=== PATIENT | male | born 1955 | race Caucasian/White ===

== ENCOUNTER 2020-09-05 19:15 | Observation (INO) | payer OTHER ==
[~2020-09-05] VITALS: Ht 167.6 cm; Wt 107.0 kg
[2020-09-05 19:18] VITALS: BP 158/75
[2020-09-05 19:39] LABS: ABSOLUTE BASOPHILS 0.1 thou/uL (0.0-0.2); ABSOLUTE EOSINOPHILS 0.1 thou/uL (0.0-0.7); ABSOLUTE MONOCYTES 0.9 thou/uL (0.0-1.2); ABSOLUTE NEUTROPHILS 3.7 thou/uL (1.6-8.1); BASOPHILS 0.8 %; EOSINOPHILS 1.7 %; HEMATOCRIT 47.4 % (42.0-52.0); HEMOGLOBIN 16.1 gm/dL (14.0-18.0); LYMPHOCYTES 45.5 %; MCH 30.2 pg (26.0-34.0); MCV 88.8 fL (80.0-100.0); MONOCYTES 10.3 %; MPV 7.6 fl. (7.2-11.1); NUCLEATED RBCS 0 /100WBC; PLATELET COUNT* 220 thou/uL (150-400); POLYS 41.7 %; RBC 5.34 mil/uL (4.50-6.00); RDW-CV 14.3 % (10.5-14.5); WBC 8.9 thou/uL (4.0-11.0)
[2020-09-05 19:47] LABS: CALCIUM 8.4 mg/dL (8.5-10.1); CREATININE 1.1 mg/dL (0.6-1.3); POTASSIUM 3.8 mmol/L (3.5-5.1)
[2020-09-05 19:49] LABS: PROTIME 10.6 Seconds (9.20-11.50)
[2020-09-05 19:57] LABS: ALBUMIN 3.9 g/dL (3.4-5.0); MAGNESIUM 2.1 mg/dL (1.8-2.4); TOTAL BILIRUBIN 0.8 mg/dL (<0.1-1.0); TOTAL PROTEIN 8.3 g/dL (6.4-8.2)
[2020-09-05 20:20] LABS: SGOT 44.4 U/L (15-37)
[2020-09-05 21:16] LABS: URINE BILIRUBIN NEGATIVE (Negative); URINE BLOOD NEGATIVE (Negative); URINE CLARITY CLEAR; URINE COLOR YELLOW; URINE GLUCOSE-RANDOM 3+ (Negative); URINE KETONES NEGATIVE (Negative); URINE LEUKOCYTES-REFLEX NEGATIVE (Negative); URINE NITRITE-REFLEX NEGATIVE (Negative); URINE PROTEIN NEGATIVE (Negative); URINE UROBILINOGEN 0.2 E.U./dl (0.2-1.0)
[2020-09-05 23:26] VITALS: BP 138/78
[2020-09-06] VITALS (7 sets, daily range): BP systolic 114–149; BP diastolic 62–83
--- NOTE | 2020-09-06 09:54 | EKG ---
[place] [address] ELECTROCARDIOGRAM REPORT Name: SHANDA CONTRERAS Room: [address]R.#: [id number] Admission: 09/05/20 Attend Phys: Kamala Gallego MD Discharge: Date of : 59 Date of Service: 09/05/201920 Report #: [id number] THIS REPORT FOR: //name// [facility] ED Test Date: 2020-09-05 Test Time: 19:21:01 Pat Name: SHANDA CONTRERAS Department: Room: [facility] Gender: M Interline Clerk: ID : [id number] Requested By: Jina Beatty Order Number: [id number] MD: Alen Dietrich Measurements Intervals [place] Rate: 94 P: 76 RI: 171 QRS: 65 QRSD: 110 T: 35 QT: 352 QTc: 441 Interpretive Statements Sinus tachycardia Multiform ventricular premature complexes RSR' in V1 or V2, right VCD or RVH No previous ECG available for comparison Electronically Signed On 09-06-2020 9:54:42 CDT by Alen Dietrich [email or web address] <ELECTRONICALLY SIGNED> By: Alen Dietrich MD, FAC 09/06/20 0954 20 20 Alen Dietrich MD, [facility] /EPI
--- NOTE | 2020-09-06 12:20 | NUR ---
Pt is A&O. Resides at home alone. Independent. No DME. No hx of HH or SNF. Pt to have stress test today. Anticipate dc home later today if negative. [facility]ist screened Pt for Medicaid, Pt is now Medicaid pending.
--- NOTE | 2020-09-06 14:46 | EXE ---
[place] [address] STRESS ECHOCARDIOGRAM Name: SHANDA CONTRERAS Jasson Room: [address] Ene#: [id number] Admission: 09/05/20 Attend Phys: Kamala Gallego MD Discharge: Date of : 59 Date of Service: 09/06/20 1446 Report #: [id number] THIS REPORT FOR: cc: Rosales Guajardo Vincent R. DO Blick, David R. MD [facility] ~ APPROVED REPORT Study performed: 09/06/2020 11:01:10 Exam: Stress Echocardiogram Indication: Chest pain Patient Location: In-Patient Stress Nurse: Daniela Null RN Room #: [id number] Supervising Physician: Alen Dietrich MD Status: routine Ht: 5 ft 6 in HR: 72 bpm BP: 149/77 mmHg Rhythm: NSR Medical History Allergies: No known drug allergies Cardiac Risk Factors: Hyperlipidemia, DM, FHX of CAD Procedure The patient underwent an Exercise Stress Test using the Trevor Protocol. Blood pressure, heart rate, and EKG were monitored. An Echocardiogram was performed by plant technician in four stages in quad fashion. At peak stress, four selected images were obtained and placed side by side with resting images for comparison. Stress Test Details Stress Test: Exercise stress testing was performed using a Trevor protocol. HR Resting HR: 72 bpm Max Heart Rate (APMHR): 157 bpm Max HR Achieved: 148 bpm Target HR (85% APMHR): 133 bpm % of APMHR: 94 Recovery HR: 93 bpm HR response to stress: Normal [place] [address] STRESS ECHOCARDIOGRAM Name: SHANDA CONTRERAS [address] [id number] Admission: 09/05/20 Attend Phys: Kamala Gallego MD Discharge: Date of : 59 Date of Service: 09/06/20 1446 Report #: [id number] Resting BP: 149/77 mmHg Max BP: 203/81 mmHg Recovery BP: 133/87 mmHg BP response to stress: Normal blood pressure response to stress. ECG Resting ECG: Sinus Rhythm Stress ECG: Sinus Rhythm, nonspecific ST-T abnormalities ST Change: Upsloping ST depression Maximum ST Deviation: 0.5 mm Arrhythmia: VPC's Recovery ECG: Sinus Rhythm, nonspecific ST-T abnormalities, Sinus Rhythm, LBBB, Sinus Rhythm Recovery ST Change: None Recovery ST Deviation: 0 mm Recovery Arrhythmia: VPC Clinical Reason for Termination: Maximal effort, Dyspnea Stress Symptoms: Chest pain Exercise duration: 5 min sec Highest Stage Achieved: Stage 2: 2.5 mph at 12% grade. Exercise capacity: 7.01 METs Pre-Stress Echo The resting Echocardiogram showed normal left ventricular contractility with an estimated Ejection Fraction of about 55-60%. Post-Stress Echo The stress Echocardiogram showed normal left ventricular contractility with an estimated Ejection Fraction of about >70%. Compared to rest, there were no stress-induced wall motion abnormalities. Conclusion Clinical Response: Equivocal Exercise Capacity: Below Average Stress ECG Response: Equivocal Stress Echo Images: Non-ischemic low risk stress echo for predicting future cardiac events Other Information Study Quality: [place] [address] STRESS ECHOCARDIOGRAM Name: SHANDA CONTRERAS Room: [address] M.R.#: [id number] Admission: 09/05/20 Attend Phys: Kamala Gallego MD Discharge: Date of : 59 Date of Service: 09/06/201445 Report #: [id number] <Conclusion> low risk stress echo for predicting future cardiac events <ELECTRONICALLY SIGNED> By: Alen Dietrich MD, FACC 09/06/20 1446 45 45 Alen Dietrich MD, FACC /INF
--- NOTE | 2020-09-06 15:38 | CON ---
[address] [address] CONSULTATION Name: SHANDA CONTRERAS Room: [address] Tana Luque#: [id number] Admission: 09/05/20 Attend Phys: Kamala Gallego MD Discharge: Date of : 59 Report #: [id number] THIS REPORT FOR: cc: Rosales Guajardo Vincent R. DO Blick, David R. MD [facility] ~ DATE OF SERVICE: 09/06/2020 CARDIOLOGY CONSULTATION HISTORY OF PRESENT ILLNESS: The patient is a 65-year-old single white male who I was asked to see in the hospital today after he complained of chest pain. The patient has no previous history of heart disease. He is not very active at this time. He has never been here to [place] before. He stays fairly active hunting and fishing. He was doing well until the past month when he has had intermittent chest pain. It is not related to exertion or meals. He feels a pressure sensation goes into his back. He also has some left upper quadrant pain. The pain can last for hours. It can make him short of breath, but denied any diaphoresis or nausea. He has had no vomiting or diarrhea. He has a chronic cough. He does get short of breath when exerts himself. He notes occasional flutter in his chest, but had no syncope. Yesterday, he was driving his car when he had the discomfort. His granddaughter drove him to the Emergency Room. He is admitted for further evaluation and treatment. At this time, the pain is better. He denied any rash or trauma to his chest. PAST MEDICAL HISTORY: He has had no surgical procedures. He does have a history of diabetes and hyperlipidemia. CURRENT MEDICATIONS: Consists of 2 diabetic medications. He takes a lipid pill, although he does not know the names. ALLERGIES: He has no known drug allergies. FAMILY HISTORY: His mother of heart attack. SOCIAL HISTORY: Retired laborer wood preserving plant. He is , lives by himself outside [place], [place]. Unfortunately, he has no medical insurance. He quit smoking 20 years ago. No alcohol abuse, no illicit drug use. REVIEW OF SYSTEMS: He has had no history of stroke. He has a history of asthma, uses inhaler. No history of liver disease, bleeding, kidney disease, cancer, chronic skin condition, psychiatric illness. PHYSICAL EXAMINATION: [place] [address] CONSULTATION Name: SHANDA CONTRERAS Room: [address] Ene#: [id number] Admission: 09/05/20 Attend Phys: Kamala Gallego MD Discharge: Date of : 59 Report #: [id number] GENERAL: Revealed a middle-aged bearded male lying in bed. He appeared in no distress. VITAL SIGNS: He had a blood pressure of 140/80, pulse is 80. He is afebrile. HEENT: He was anicteric. Conjunctivae are pink. Mucous membranes moist. NECK: Veins were not distended. No carotid bruits. CHEST: Clear to auscultation. CARDIOVASCULAR: Regular rate and rhythm, no murmur or rub. ABDOMEN: Soft. EXTREMITIES: Had no edema. Posterior tibial pulse 2+ bilaterally. SKIN: Cool and dry. NEUROLOGIC: Nonfocal. LYMPH: No adenopathy. MUSCULOSKELETAL: No joint effusion. There is no ECG in the chart. On the monitor, he is in a sinus rhythm, occasional PVC. His workup in the Emergency Room last night, he had chest x-ray that showed a normal heart size, clear lung betancourt. LABORATORY DATA: Sodium 139, creatinine 1.1, glucose was 258, SGOT 44, lipase 175, SGPT 79. Troponins were all less than 0.06. His D-dimer 0.32. Hemoglobin 16.1. His COVID antigen stat test was negative. Urinalysis negative for protein, 3+ glucose, negative for leukocytes. IMPRESSION AND RECOMMENDATIONS: 1. Chest pain. Atypical for angina. Consider stress echocardiogram. 2. Diabetes. The patient is on oral medications. 3. Hyperlipidemia. Apparently, the patient is on medications. <ELECTRONICALLY SIGNED> By: Alen Dietrich MD, FACC 09/06/20 1538 0908 [id number] Dietrich MD, FACC /nt
--- NOTE | 2020-09-06 16:15 | NUR ---
Reviewed discharge teaching with patient. Verbalized understanding. IV and compatibility test engineer dc'd. Pt's stress echo normal per Dr. Dietrich. Pt inquired what to do about pain in chest. Suggested OTC PPI for now and to make appointment with PCP for further evaluation. Dc'd from unit per WC.
== END 2020-09-06 16:15 | disposition home or self-care (01) ==
LOC: M.ERS 19:15 → M.TBA-ER 22:18 → M.2W 23:23
PROVIDERS: Emergency Medicine; ADMIT Family Medicine; ATTEND Family Medicine
DX: I20.9 Angina pectoris, unspecified (principal); Z20.822 Contact with and (suspected) exposure to COVID-19; E11.9 Type 2 diabetes mellitus without complications; E78.5 Hyperlipidemia, unspecified; E66.01 Morbid (severe) obesity due to excess calories; Z87.891 Personal history of nicotine dependence; Z68.38 Body mass index [BMI] 38.0-38.9, adult; Z79.899 Other long term (current) drug therapy